=== PATIENT | female | born 1960 | race Caucasian/White ===

== ENCOUNTER 2016-10-01 13:23 | Inpatient (IN) | payer OTHER ==
[2016-09-30 08:09] VITALS: BMI 31.0
--- NOTE | 2016-09-30 21:28 | HISTORY & PHYSICAL EXAMINATION ---
DATE OF ADMISSION: 10/01/2016 SUBJECTIVE CHIEF COMPLAINT: Nonhealing surgical wound, right ankle. HISTORY OF PRESENT ILLNESS: This is a patient who had had a neglected Achilles tendon tear who subsequently had it repaired approximately [address] Hauser. Over the previous 2-3 weeks, the patient is being seen for a nonhealing aspect of the wound at the mid portion of the incision along the right Achilles. At her most recent visit, there was Achilles tissue noted to be exposed as well as permanent suture exposed from the tendon repair. She is now being set up for surgical treatment of this nonhealing wound. PAST MEDICAL HISTORY: History of heart murmur and a valve problem, history of DVT and pulmonary embolism, anxiety and depression, and hiatal hernia. FAMILY HISTORY: Noncontributory. SOCIAL HISTORY: The patient denies alcohol and tobacco use. PAST SURGICAL HISTORY: Cholecystectomy, a lymph node biopsy, tonsillectomy, right Achilles tendon repair, tubal ligation and an ablation. ALLERGIES: ALCOHOL BOTH TOPICAL AND INGESTED ALCOHOL, OXYCODONE, IODINE, LATEX, LEVAQUIN, VIOXX, AND KEFLEX. CURRENT MEDICATIONS: Coumadin 5 mg p.o. daily, Lovenox b.i.d., Bactrim-DS p.o. b.i.d., a multivitamin daily and Xanax as needed. OBJECTIVE PHYSICAL EXAMINATION: GENERAL: The patient is alert and oriented x3. She is in no acute distress. She is a well-dressed, well-nourished 55-year-old female. Her affect is appropriate. CARDIOVASCULAR: Heart has a regular rhythm and rate with a systolic ejection murmur. LUNGS: Clear to auscultation bilateral. NEUROVASCULAR: Dorsalis pedis, posterior tib pulses are +1/4. Capillary refill is approximately 2 seconds. LYMPHATIC: No evidence of any swollen lymph nodes. MUSCULOSKELETAL: The patient is nonweightbearing on the right lower extremity. After removal of her splint, the patient is noted to have a nonhealing aspect of the surgical wound at the medial aspect of the Achilles. There is exposed Achilles tendon as well to exposed sutures, which have been removed. There is mild to moderate serosanguineous drainage, there is no purulence noted, does not appear to be any fluctuance noted at the site. NEUROLOGIC: Sensation normal intact distally right lower extremity. ASSESSMENT AND DIAGNOSIS: 1. Right ankle nonhealing surgical wound at the medial aspect of the Achilles, status post Achilles tendon repair. PLAN: Above assessment was discussed with the patient. At this time, it was recommended the patient undergo an I\T\D of the right ankle nonhealing wound as well as possible removal of the sutures from the Achilles tendon. All potential risks, benefits, complications, alternatives and rehab have been discussed with the patient. At this time, she wishes to proceed with the surgery as indicated. She will be scheduled for the surgery on 10/01/2016. NOE
[~2016-10-01] VITALS: Ht 154.9 cm; Wt 75.0 kg
[~2016-10-01 13:23] MED LIST: ALPR-411 PO; LACTATED RINGER'S 1000ML IV SCH; LOVENOX INJ; MULT-506 PO; SCOPOLAMINE 1.5 MG TDSY TD SCH; WARF5TAB7 PO
[2016-10-01 13:43] VITALS: BP 139/90; PULSE 63; TEMP 36.6; O2SAT 97; Ht 154.9 cm; Wt 75.0 kg
[2016-10-01 14:03] LABS: INR 1.5 (0.9-1.1); PARTIAL THROMBOPLASTIN RATIO 1.5; PROTHROMBIN TIME (PATIENT) 16.3 SECONDS (9.0-12.0)
[2016-10-01] MEDS ORDERED: SULF1TAB92 PO (14:16)
[2016-10-01] MEDS: CHECK SCOPOLAMINE PATCH PLACEMENT SCH (16:00)
--- NOTE | 2016-10-01 17:48 | History & Physical Bridge Note ---
H&P Re-Evaluation Bridge Note: I have examined the patient, reviewed the History & Physical and in the interval since the performance of the History & Physical I have noted the following changes of clinical significance: No changes noted
[2016-10-01] MEDS ORDERED: ATROPINE SULFATE 0.1 MG/ML 5ML SYR IV PRN (19:45)
[2016-10-01] MEDS ORDERED: FENTANYL CITRATE INJ 50 MCG/1 ML 2 ML VIAL IV PRN (19:45)
[2016-10-01] MEDS ORDERED: ONDANSETRON INJ 2 MG/ML 2 ML VIAL IV PRN ×2 (19:45→21:45)
[2016-10-01] MEDS ORDERED: EpHEDrine SULFATE INJ 50 MG/ML AMP IV PRN (19:45)
[2016-10-01] MEDS ORDERED: MIDAZOLAM HCL 1 MG/ML 2ML VIAL ONE (19:46)
[2016-10-01] MEDS ORDERED: FENTANYL CITRATE INJ 50 MCG/1 ML 2 ML VIAL ONE ×2 (19:46→20:24)
[2016-10-01] MEDS ORDERED: ONDANSETRON INJ 2 MG/ML 2 ML VIAL ONE (20:11)
[2016-10-01] MEDS ORDERED: DEXAMETHASONE SOD INJ 4 MG/ML VIAL ONE (20:11)
[2016-10-01] MEDS ORDERED: PROPOFOL IV EMULSION 10 MG/ML 20 ML VIAL IV ONE (20:11)
[2016-10-01] MEDS ORDERED: CLINDAMYCIN 600 MG/54 ML D5W IV ONE (20:16)
[2016-10-01] MEDS ORDERED: BACITRACIN 50000 UNIT VIAL IR ONE (21:09)
[2016-10-01] MEDS ORDERED: BUPIVACAINE 0.5 % 5 MG/1 ML MPF 30ML VIAL INJ ONE (21:09)
[2016-10-01] MEDS ORDERED: NURSING VERBAL MED ORDER ONE (21:27)
[2016-10-01 21:32] VITALS: PULSE 73; O2SAT 98
--- NOTE | 2016-10-01 21:34 | [facility] Post Operative Brief Note ---
Immediate Operative Summary Operative Date Oct 01, 2016. Pre-Operative Diagnosis Right ankle nonhealing surgical wound at the medial aspect of the Achilles, status post Achilles tendon repair, Retained suture Post-Operative Diagnosis Right ankle nonhealing surgical wound at the medial aspect of the Achilles, status post Achilles tendon repair, Retained suture, Infected Achilles repair Procedure(s) Performed Right Irrigation and Debridement Medial Lower Leg Incision, Debridement Achilles Tendon, Debridement Fascia, Removal Deep Sutures Surgeon Dr. Hauser Chemical Handler Surgeon(s) None Estimated Blood Loss 15cc Findings See Dict Specimens None-cultures obtained in office Drains HV x 1, 1/2" Gauze drains x 2 Anesthesia GLMA w/ local Complication(s) None Disposition Recovery Room / PACU
[2016-10-01] MEDS ORDERED: MoRPHine SULFATE 4 MG/ML 1 ML CARP\\VIAL IV PRN (21:45)
[2016-10-01] MEDS ORDERED: ALPRAZOLAM 0.5 MG TAB PO SCH (21:45)
[2016-10-01] MEDS ORDERED: ALUMINUM/MAGNESIUM/SIMETH (MAALOX MAX) 30 ML UDC PO PRN (21:45)
[2016-10-01] MEDS ORDERED: MAGNESIUM HYDROXIDE SUSP 30 ML UDC PO PRN (21:45)
[2016-10-01] MEDS ORDERED: ALBUT/IPRATROP 3MG/0.5MG NEB 3 ML VIAL INH ONE (21:45)
--- NOTE | 2016-10-01 21:55 | DIAGNOSTIC IMAGING REPORT ---
CHEST ONE VIEW PORTABLE CLINICAL HISTORY: Productive cough, coarse breath sounds. COMPARISON STUDY: No previous studies for comparison. FINDINGS: Surgical clips project over the mediastinum. There are also cholecystectomy clips. Lung volumes are at the lower limits of normal. Linear right midlung opacity likely reflects atelectasis or the minor fissure. No consolidation is identified. Cardiac size is at the upper limits of normal. The patient is mildly rotated. There is no pneumothorax or pleural effusion IMPRESSION: No acute cardiopulmonary findings. Electronically signed by: Watson Lewis M.D. 10/01/2016 9:54 PM Dictated Date/Time: 10/01/2016 9:52 PM
[2016-10-01 22:45] VITALS: BP 139/78; PULSE 66; TEMP 36.8; O2SAT 96
[2016-10-01] MEDS ORDERED: ALBUT/IPRATROP 3MG/0.5MG NEB 3 ML VIAL INH PRN (23:15)
[2016-10-01 23:18] VITALS: BP 127/80; PULSE 75; TEMP 36.7; O2SAT 93
--- NOTE | 2016-10-01 23:26 | OPERATIVE REPORT ---
DATE OF OPERATION: 10/01/2016 PREOPERATIVE DIAGNOSES: 1. Right medial lower leg nonhealing surgical wound. 2. Infected Achilles tendon repair. 3. Retained sutures. POSTOPERATIVE DIAGNOSES: Same. PROCEDURES: 1. Right medial lower leg irrigation and debridement. 2. Debridement of Achilles tendon. 3. Debridement of fascia. 4. Removal of deep sutures. SURGEON: Dr. Hauser. HYDROPULPER OPERATOR: None. ANESTHESIA: General LMA with local. SPECIMENS: None. Previously obtained through office. DRAINS: Hemovac x1, 1/2 inch gauze drains x2. COMPLICATIONS: None. BLOOD LOSS: 15 mL. PERTINENT HISTORY: This is a 55-year-old female who had a neglected right Achilles tendon rupture which had undergone subsequent repair. She initially had been uncomplicated recovery; however, the patient did have several falls while trying to maintain nonweightbearing while at home. Some of these were witnessed, some of them unwitnessed. However, the patient did recount discussion of these episodes as well as her family. She then eventually developed redness and swelling over her Achilles tendon incision with eventual dehiscence and failure to heal and noticed at postop wound check that there is visible Achilles tendon with dehiscence of the wound. The patient was then scheduled for debridement and closure. Cultures were obtained in the office. The patient was scheduled for surgery as indicated. All potential risks, benefits, complications, alternatives, rehab, potential for incomplete relief of symptoms, need for further surgery, DVT, PE, , persistent pain, swelling, scarring, weakness, neurovascular injury, wound complications, weakness of the lower extremity and possible eventual limited function with plantar flexion was discussed with the patient. The patient decided to proceed with the procedure as indicated. PROCEDURE IN DETAIL: The patient was taken to the operative suite, placed supine on the operating room table. After review of consent and identification of proper operative site, the patient was anesthetized, LMA was placed. Tourniquet was applied high on the right thigh over cast padding. Right lower extremity was then sterilely prepped and draped in usual fashion. The limb was then elevated. There was no exsanguination performed due to the wound dehiscence. Tourniquet inflated to 350 mmHg. Next, a 15 blade scalpel was used to enlarge the incision both proximally and distally. There was noted to be exposed Achilles tendon with no foul odor and transudate present. This was debrided with a rongeur. The tendon was noted to have poor consistency and resiliency and was then debrided. Noted to be clotted blood adjacent to the Achilles repair. Approximately 60-70% of the repair had been compromised as this was debrided, noted to be suture intact with knots still tied. This had pulled through a significant portion of the tendon and all sutures were then removed proximally and distally. Next, after debridement was completed with rongeur, curette was then used to curet the tissue around the remaining Achilles tendon. There was noted to be a palpable gap in the intact tendon. Next, pulsatile lavage 6 liters with bacitracin was used to irrigate the area. The fascia was also debrided with a rongeur as well as peritenon, which was compromised as well. There was no particular abscess fluid pockets present. Next, the tissue was loosely approximated with 3-0 nylon sutures using combination of simple sutures and horizontal mattress sutures. Next, a 10 Ivorian Hemovac drain and 1/2 inch gauze drains x2 were applied into the wound as packing. The skin flaps were carefully loosely approximated without any undue tension. Next, approximately 30 mL of 0.5% Marcaine plain was injected around the wound for postoperative pain control. Next, a sterile lightly compressive dressing was applied, overwrapped with ABD, Webril, and Felipe wrap. The foot was left in gravity equinus and overwrapped with an Felipe wrap. Tourniquet was released. The patient was awakened and taken to recovery in stable condition. I attest to the content of the Intraoperative Record and any orders documented therein. Any exceptio ns are noted below.
--- NOTE | 2016-10-01 23:42 | Anesthesiology Progress Note ---
Anesthesia Post Op Note Date & Time Oct 01, 2016 at 23:32 Vital Signs Pain Intensity: 0 Vital Signs Past 12 Hours Date Time Temp Pulse Resp B/P Pulse Ox O2 Delivery O2 Flow Rate FiO2 10/01/16 23:18 36.7 75 18 127/80 93 2.0 10/01/16 22:45 36.8 66 20 139/78 96 Nasal Cannula 2.0 10/01/16 22:01 36.4 69 22 139/60 94 Nasal Cannula 2 10/01/16 21:54 72 23 133/76 99 10/01/16 21:54 68 23 10/01/16 21:49 82 32 143/53 96 10/01/16 21:49 83 32 10/01/16 21:44 79 28 10/01/16 21:44 79 28 96 10/01/16 21:43 153/73 10/01/16 21:39 74 26 96 10/01/16 21:39 75 26 10/01/16 21:38 147/73 10/01/16 21:36 80 32 96 10/01/16 21:36 81 32 10/01/16 21:35 77 26 144/84 97 Mask 10 10/01/16 21:33 144/84 10/01/16 21:32 73 21 98 Mask 10.0 10/01/16 21:31 66 22 10/01/16 21:31 66 22 97 10/01/16 21:28 150/86 10/01/16 21:26 71 24 10/01/16 21:26 73 24 98 10/01/16 21:25 62 20 145/78 98 Mask 10 10/01/16 21:24 145/78 10/01/16 21:21 76 26 97 10/01/16 21:21 78 26 10/01/16 21:19 160/72 10/01/16 21:16 70 22 98 10/01/16 21:16 37.1 77 20 141/92 94 Mask 10 10/01/16 21:16 70 22 10/01/16 13:43 36.6 63 20 139/90 97 Room Air Notes Mental Status: alert / awake / arousable, participated in evaluation Pt Amnestic to Procedure: Yes Nausea / Vomiting: adequately controlled Pain: adequately controlled Airway Patency, RR, SpO2: stable & adequate, see Notes BP & HR: stable & adequate Hydration State: stable & adequate Anesthetic Complications: no major complications apparent Patient was a scheduled case from earlier today but was delayed 2/2 several other OR emergencies. Patient had right ankle I and D from a procedure she had done about a month ago at an outside surgical center. Patient stated she had a hiatal hernia but denied any recent reflux symptoms. She had been NPO since and procedure was deemed to last 30 minutes or less so LMA was determined to be an appropriate airway device for her given that the surgery required general anesthesia. LMA was inserted easily and patient had PSV for the majority of the case. Near the end of the procedure, she was spontaneously breathing with assistance. After emergence from anesthesia, LMA was pulled and mask connected to the circuit was applied after she was gently suctioned (only returned saliva) . Patient cough a few times as she was transferred to the stretcher. HOB was elevated and I noted her SpO2 was 95-96% with 10L FM oxygen. She had present but faint rhonchi b/l and was awake and denied pain and was breathing regularly and deeply. She was taken to the PACU where I decided to give her a duoneb and also had a CXR performed as I wanted to rule out aspiration (despite not seeing any vomiting I was still concerned that she could have silently aspirated at some point). I called on-call radiology and radiologist stated he did not see any lung pathology or signs suggestive of aspiration. Patient continued with mid 90's SpO2 as she was weaned to NC and she was encouraged to use ISB. I spoke with the Dr. Gordillo of orthopedics who stated he was planning on admitting the patient, which I agreed with. I then contacted the on-call [facility] hospitalist who was going to be covering the patient and stated my concerns and also stated that I would ensure patient was maintained on NC oxygen on the floor along with continuous pulse oximetry. Hospitalist stated he would see patient on the floor and ensure the level of care did not need to be escalated. Patient was transferred to the floor without issue and will be closely followed. Mayo Forbes MD Staff Anesthesiologist
[2016-10-01 23:45] VITALS: BP 122/74; PULSE 82; TEMP 36.4; O2SAT 94
--- NOTE | 2016-10-01 23:46 | History and Physical ---
History & Physical Date & Time of Service: Oct 01, 2016 at 23:39 Chief Complaint: Right Ankle Other Complications Of Procedures Primary Care Physician: Jatinder Duarte D.O. History of Present Illness Source: patient This is a 55 year old female with PMH of DVT/multiple PEs, recent history of right ankle surgery here for wound I & D; patient had surgical repair of an Achilles tendon rupture on the right about a month prior to arrival; has had difficulty with wound repair, it was decided she would come in for I & D, which she had done. Post-operatively, patient has been coughing and slightly hypoxic requiring O2 via nasal cannula. She tells me she is not short of breath, denies chest pain; +cough, +sputum. Social History Smoking Status: Never Smoker Allergies Coded Allergies: Cephalexin (Verified Allergy, Severe, RASH THROAT SWELLING,ECZEMA, 10/01/16) Latex (Verified Allergy, Severe, RASH WITH CONTACT,SOME SOB, 10/01/16) Rofecoxib (Verified Allergy, Mild, NAUSEA VOMITING, 10/01/16) Wood Preservatives (Verified Allergy, Mild, RASH WITH CONTACT WITH WOOD, ) Alcohol (Verified Allergy, Unknown, INGESTED, NAUSEA/VOMITING, RUBBING ALCOHOL TOPICAL RASH, 10/01/16) Iodinated Diagnostic Agents (Verified Allergy, Unknown, RASH WITH IVP DYES -TOPICAL IODINE OK PER PT, 10/01/16) Nickel (Verified Allergy, Unknown, RASH WITH METALS, 10/01/16) Levofloxacin (Verified Adverse Reaction, Mild, NAUSEA AND VOMITING, 10/01/16 ) Oxycodone (Verified Adverse Reaction, Mild, NAUSEA VOMITING, 10/01/16) Home Medications Scheduled Alprazolam (Xanax), 0.25 MG PO PRN Multivitamin (Multivitamin), 1 TAB PO HS Trimethoprim/Sulfamethoxazole (Bactrim 400MG/80MG), 1 TAB PO Q12H Warfarin Sod (Jantoven), 5 MG PO QPM [Lovenox], 1 DOSE INJ UD Review of Systems Constitutional: No chills, No fever Respiratory: + cough, + sputum, No dyspnea at rest, No dyspnea on exertion, No hemoptysis, No shortness of breath, No wheezing Cardiovascular: No chest pain, No edema, No orthopnea, No palpitations Abdomen: No diarrhea, No nausea, No pain, No vomiting Musculoskeletal: + joint pain (right ankle, controlled with medications) Genitourinary - Female: No dysuria, No urinary frequency Neurologic: No memory loss, No paralysis Psychiatric: No depression symptoms Hematologic / Lymphatic: No abnormal bleeding/bruising Integumentary: No rash Allergic / Immunologic: No environmental allergies, No seasonal allergies Physical Exam Vital Signs Date Time Temp Pulse Resp B/P Pulse Ox O2 Delivery O2 Flow Rate FiO2 10/01/16 23:18 36.7 75 18 127/80 93 2.0 10/01/16 22:45 36.8 66 20 139/78 96 Nasal Cannula 2.0 10/01/16 22:01 36.4 69 22 139/60 94 Nasal Cannula 2 10/01/16 21:54 72 23 133/76 99 10/01/16 21:54 68 23 10/01/16 21:49 82 32 143/53 96 10/01/16 21:49 83 32 10/01/16 21:44 79 28 10/01/16 21:44 79 28 96 10/01/16 21:43 153/73 10/01/16 21:39 74 26 96 10/01/16 21:39 75 26 10/01/16 21:38 147/73 10/01/16 21:36 80 32 96 10/01/16 21:36 81 32 10/01/16 21:35 77 26 144/84 97 Mask 10 10/01/16 21:33 144/84 10/01/16 21:32 73 21 98 Mask 10.0 10/01/16 21:31 66 22 10/01/16 21:31 66 22 97 10/01/16 21:28 150/86 10/01/16 21:26 71 24 10/01/16 21:26 73 24 98 10/01/16 21:25 62 20 145/78 98 Mask 10 10/01/16 21:24 145/78 10/01/16 21:21 76 26 97 10/01/16 21:21 78 26 10/01/16 21:19 160/72 10/01/16 21:16 70 22 98 10/01/16 21:16 37.1 77 20 141/92 94 Mask 10 10/01/16 21:16 70 22 10/01/16 13:43 36.6 63 20 139/90 97 Room Air General Appearance: no apparent distress Head: normocephalic, atraumatic Eyes: normal inspection ENT: hearing grossly normal Respiratory/Chest: lungs clear, normal breath sounds, no respiratory distress, no accessory muscle use Cardiovascular: regular rate, rhythm, no edema, no murmur Abdomen/GI: normal bowel sounds, non tender, soft Extremities/Musculoskelatal: no pedal edema, + pertinent finding (right ankle is heavy dressed/wrapped) Neurologic/Psych: no motor/sensory deficits, alert, normal mood/affect Diagnostics Laboratory Results Results Past 24 Hours Test 10/01/16 13:47 10/01/16 21:19 Range/Units Prothrombin Time 16.3 9.0-12.0 SECONDS Prothromb Time International Ratio 1.5 0.9-1.1 Activated Partial Thromboplast Time 39.1 21.0-31.0 SECONDS Partial Thromboplastin Ratio 1.5 Bedside Glucose 116 70-90 mg/dl Diagnostic Radiology CHEST ONE VIEW PORTABLE CLINICAL HISTORY: Productive cough, coarse breath sounds. COMPARISON STUDY: No previous studies for comparison. FINDINGS: Surgical clips project over the mediastinum. There are also cholecystectomy clips. Lung volumes are at the lower limits of normal. Linear right midlung opacity likely reflects atelectasis or the minor fissure. No consolidation is identified. Cardiac size is at the upper limits of normal. The patient is mildly rotated. There is no pneumothorax or pleural effusion IMPRESSION: No acute cardiopulmonary findings. Impression Assessment and Plan This is a 55 year old female with PMH of DVT/multiple PEs, recent history of right ankle surgery here for wound I & D; Post-Operative Hypoxia -->possible aspiration? -->CXR post-operatively does not show any acute abnormalities -->improved with neb treatment and O2 -->will continue O2 and continuous pulse oximetry for now; saturating > 90% -->nebs as needed -->repeat CXR in AM -->CBC, PRP, Mg in AM Hx. of DVT/Multiple PEs -->has already gone through hypercoag w/up, no findings -->takes Coumadin -->Coumadin to lovenox bridge for surgery -->Lovenox restarted as per ortho -->restart Coumadin when okay with ortho Post-Operative State -->pain management as per ortho DVT ppx -->lovenox FULL CODE VTE Prophylaxis VTE Risk Assessment Done? Y/N: Yes Risk Level: Moderate
[2016-10-02] VITALS (11 sets, daily range): BP systolic 93–139; BP diastolic 47–81; PULSE 50–82; TEMP 36.4–36.8; O2SAT 91–97
[2016-10-02] MEDS: POTASSIUM CHLORIDE INJ 10 MEQ in SODIUM CHLORIDE 0.9% 1000ML 1,000 ML IV SCH ×3 (00:43→21:05)
[2016-10-02 07:03] LABS: MEAN CELL VOLUME 85.7 fL (80-100); MEAN CORPUSCULAR HEMOGLOBIN 29.5 pg (25-34); MEAN CORPUSCULAR HGB CONC 34.4 g/dl (32-36); MEAN PLATELET VOLUME 9.2 fL (7.4-10.4); PLATELET COUNT 230 K/uL (130-400); RED BLOOD COUNT 4.55 M/uL (4.2-5.4); WHITE BLOOD COUNT 14.09 K/uL (4.8-10.8)
[2016-10-02 07:28] LABS: CALCIUM 8.9 mg/dl (8.5-10.1); CREATININE 0.94 mg/dl (0.60-1.20); MAGNESIUM 2.3 mg/dl (1.8-2.4); POTASSIUM 4.3 mmol/L (3.5-5.1)
[2016-10-02] MEDS ORDERED: VANCOMYCIN INJ 1,150 MG in SODIUM CHLORIDE 0.9% 250ML 250 ML IV ONE (08:00)
[2016-10-02] MEDS: CHECK SCOPOLAMINE PATCH PLACEMENT SCH ×3 (08:21→16:10)
[2016-10-02] MEDS: DOCUSATE SODIUM 100 MG CAP PO SCH ×2 (08:29→21:04)
[2016-10-02 08:50] LABS: INR 1.2 (0.9-1.1); PARTIAL THROMBOPLASTIN RATIO 1.2; PROTHROMBIN TIME (PATIENT) 13.3 SECONDS (9.0-12.0)
[2016-10-02] MEDS ORDERED: SULFAMETHOXAZOLE/TRIMETHOPRIM 400/80MG TAB PO SCH (09:00)
[2016-10-02] MEDS ORDERED: MULTIVITAMIN TAB PO SCH (09:00)
--- NOTE | 2016-10-02 10:08 | Orthopedic Progress Note ---
Orthopedic Progress Note Date of Service Oct 02, 2016. Subjective Post OP Day: 1 (Right Irrigation and Debridement Medial Lower Leg Incision) Reports: feeling well, pain controlled w PO medications, Denies: SOB, chest pain , complaints, light headedness, nausea / vomiting Objective N/V intact, capillary refill less than 2 sec., incision C/D/I, A&O x3, toes mobile hemovac pulled, approx 6"packing removed from both prox and distal areas. minimal swelling Date Time Temp Pulse Resp B/P Pulse Ox O2 Delivery O2 Flow Rate FiO2 10/02/16 07:05 36.5 72 16 120/76 96 2.0 10/02/16 03:56 36.5 79 16 139/81 94 Room Air 10/02/16 01:52 36.4 67 16 109/69 94 2.0 10/02/16 00:47 36.5 60 16 102/64 95 2.0 10/01/16 23:45 36.4 82 18 122/74 94 2.0 10/01/16 23:18 36.7 75 18 127/80 93 2.0 10/01/16 22:45 96 Nasal Cannula 3.0 10/01/16 22:45 36.8 66 20 139/78 96 Nasal Cannula 2.0 10/01/16 22:01 36.4 69 22 139/60 94 Nasal Cannula 2 10/01/16 21:54 72 23 133/76 99 10/01/16 21:54 68 23 10/01/16 21:49 82 32 143/53 96 10/01/16 21:49 83 32 10/01/16 21:44 79 28 10/01/16 21:44 79 28 96 10/01/16 21:43 153/73 10/01/16 21:39 74 26 96 10/01/16 21:39 75 26 10/01/16 21:38 147/73 10/01/16 21:36 80 32 96 10/01/16 21:36 81 32 10/01/16 21:35 77 26 144/84 97 Mask 10 10/01/16 21:33 144/84 10/01/16 21:32 73 21 98 Mask 10.0 10/01/16 21:31 66 22 10/01/16 21:31 66 22 97 10/01/16 21:28 150/86 10/01/16 21:26 71 24 10/01/16 21:26 73 24 98 10/01/16 21:25 62 20 145/78 98 Mask 10 10/01/16 21:24 145/78 10/01/16 21:21 76 26 97 10/01/16 21:21 78 26 10/01/16 21:19 160/72 10/01/16 21:16 70 22 98 10/01/16 21:16 37.1 77 20 141/92 94 Mask 10 10/01/16 21:16 70 22 10/01/16 13:43 36.6 63 20 139/90 97 Room Air Laboratory Results 24 Hours: Test 10/01/16 13:47 10/02/16 06:05 10/02/16 08:31 Prothromb Time International Ratio 1.5 1.2 Prothrombin Time 16.3 SECONDS 13.3 SECONDS Hematocrit 39.0 % Hemoglobin 13.4 g/dL Assessment & Plan Assessment: POD #1 s/p Right Irrigation and Debridement Medial Lower Leg Incision, Debridement Achilles Tendon, Debridement Fascia, Removal Deep Sutures - approx 6" packing removed, removed hemovac -ID consult -cont w/ IV Abx pending further evaluation -will recheck wound tomorrow for determination if will need repeat I&D
--- NOTE | 2016-10-02 11:04 | DIAGNOSTIC IMAGING REPORT ---
CHEST 2 VIEWS ROUTINE CLINICAL HISTORY: Evaluate for aspiration pneumonia. COMPARISON STUDY: Chest radiograph October 01, 2016. FINDINGS: Mediastinal surgical clips and cholecystectomy clips are noted. There is no pneumothorax or pleural effusion. No consolidation is identified. Cardiac size is at the upper limits of normal. There is no evidence of pulmonary edema. IMPRESSION: No acute cardiopulmonary findings. Electronically signed by: Watson Lewis M.D. 10/02/2016 11:02 AM Dictated Date/Time: 10/02/2016 11:01 AM
[2016-10-02] MEDS: HYDROCODONE/ACETAMOPHEN 5/325MG TAB PO PRN ×2 (11:09→17:55)
[2016-10-02] MEDS: ENOXAPARIN 40 MG/0.4 ML SYR SQ SCH (11:11)
--- NOTE | 2016-10-02 15:52 | Medical Consult ---
Consultation Date of Consultation: Oct 02, 2016. Attending Physician: Mike Hauser D.O. Reason for Consultation: Infected right Achilles tendon repair History of Present Illness 55-year-old female who underwent repair of ruptured Achilles tendon approximately 4 weeks ago. She apparently had poor wound healing with persistent open wound, and failed to respond to oral Bactrim therapy. She was found to have exposed tendon and sutures, and was admitted to the hospital and is now undergone surgical debridement. Was given dose of vancomycin, now back on oral Bactrim. No cultures available for review. Patient currently states pain relatively well controlled, no history of fever, chills, or other systemic complaints. Tolerating antibiotic without apparent difficulty. Has history of severe reaction to cephalexin in the past. Past Medical/Surgical History Medical Problems: (1) History of DVT (deep vein thrombosis) (2) History of pulmonary embolus (PE) (3) Infection of Achilles tendon (4) Nonhealing surgical wound (5) Retained suture PAST MEDICAL HISTORY: History of heart murmur and a valve problem, history of DVT and pulmonary embolism, anxiety and depression, and hiatal hernia. PAST SURGICAL HISTORY: Cholecystectomy, a lymph node biopsy, tonsillectomy, right Achilles tendon repair, tubal ligation and an ablation. Family History noncontributory Social History Smoking Status: Never Smoker Allergies Coded Allergies: Cephalexin (Verified Allergy, Severe, RASH THROAT SWELLING,ECZEMA, 10/01/16) Latex (Verified Allergy, Severe, RASH WITH CONTACT,SOME SOB, 10/01/16) Rofecoxib (Verified Allergy, Mild, NAUSEA VOMITING, 10/01/16) Wood Preservatives (Verified Allergy, Mild, RASH WITH CONTACT WITH WOOD, ) Alcohol (Verified Allergy, Unknown, INGESTED, NAUSEA/VOMITING, RUBBING ALCOHOL TOPICAL RASH, 10/01/16) Iodinated Diagnostic Agents (Verified Allergy, Unknown, RASH WITH IVP DYES -TOPICAL IODINE OK PER PT, 10/01/16) Nickel (Verified Allergy, Unknown, RASH WITH METALS, 10/01/16) Levofloxacin (Verified Adverse Reaction, Mild, NAUSEA AND VOMITING, 10/01/16 ) Oxycodone (Verified Adverse Reaction, Mild, NAUSEA VOMITING, 10/01/16) Current Inpatient Medications Current Inpatient Medications Medications (Trade) Dose Ordered Sig/Blanca Route Start Time Stop Time Status Last Admin Dose Admin Miscellaneous (Remove Transderm-Scop Patch) 1 ea Q72H N/A 10/03/16 06:00 10/03/16 06:01 Miscellaneous Information (Check Scopolamine Patch Placement) 1 ea QS N/A 10/01/16 16:00 10/03/16 05:59 10/02/16 08:21 1 EA Multivitamins 1 tab 1 tab HS PO 10/02/16 21:00 11/01/16 20:59 Potassium Chloride/Sodium Chloride (KCl Inj/Nss 1000ml) 1,005 ml @ 100 mls/hr Q10H3M IV 10/02/16 01:00 11/01/16 00:59 10/02/16 12:49 100 MLS/HR Acetaminophen/ Hydrocodone Bitart ([place] 5/325 Tab) 1-2 TABS FOR PAIN 1 TABLET ... Q6H PRN PO 10/01/16 21:45 10/15/16 21:44 10/02/16 11:09 1 TAB Morphine Sulfate (MoRPHine SULFATE INJ) 3 mg Q3HWA PRN IV 10/01/16 21:45 10/15/16 21:44 Magnesium Hydroxide (Milk Of Magnesia Susp) 30 ml Q6H PRN PO 10/01/16 21:45 10/31/16 21:44 Docusate Sodium (coLACE CAP) 100 mg BID PO 10/02/16 09:00 11/01/16 08:59 10/02/16 08:29 100 MG Al Hydrox/Mg Hydrox/Simethicone (Maalox Max Susp) 15 ml Q4H PRN PO 10/01/16 21:45 10/31/16 21:44 Ondansetron HCl (Zofran Inj) 4 mg Q6H PRN IV 10/01/16 21:45 10/31/16 21:44 Enoxaparin Sodium (Lovenox Inj) 40 mg QAM SQ 10/02/16 10:00 11/01/16 08:59 10/02/16 11:11 40 MG Albuterol/ Ipratropium (Duoneb) 3 ml Q4H PRN INH 10/01/16 23:15 10/31/16 23:14 Trimethoprim/ Sulfamethoxazole (Septra 400/80MG Tab) 1 tab Q12H PO 10/02/16 09:00 10/12/16 08:59 10/02/16 08:29 1 TAB Review of Systems All systems were reviewed and are negative except as per HPI Physical Exam Date Time Temp Pulse Resp B/P Pulse Ox O2 Delivery O2 Flow Rate FiO2 10/02/16 15:25 36.6 68 17 93/47 95 10/02/16 11:53 36.7 68 8 112/62 91 Room Air 10/02/16 11:34 92 10/02/16 08:10 97 Room Air 3.0 10/02/16 07:05 36.5 72 16 120/76 96 2.0 10/02/16 03:56 36.5 79 16 139/81 94 Room Air 10/02/16 01:52 36.4 67 16 109/69 94 2.0 10/02/16 00:47 36.5 60 16 102/64 95 2.0 10/01/16 23:45 36.4 82 18 122/74 94 2.0 10/01/16 23:18 36.7 75 18 127/80 93 2.0 10/01/16 22:45 96 Nasal Cannula 3.0 10/01/16 22:45 36.8 66 20 139/78 96 Nasal Cannula 2.0 10/01/16 22:01 36.4 69 22 139/60 94 Nasal Cannula 2 10/01/16 21:54 72 23 133/76 99 10/01/16 21:54 68 23 10/01/16 21:49 82 32 143/53 96 10/01/16 21:49 83 32 10/01/16 21:44 79 28 10/01/16 21:44 79 28 96 10/01/16 21:43 153/73 10/01/16 21:39 74 26 96 10/01/16 21:39 75 26 10/01/16 21:38 147/73 10/01/16 21:36 80 32 96 10/01/16 21:36 81 32 10/01/16 21:35 77 26 144/84 97 Mask 10 10/01/16 21:33 144/84 10/01/16 21:32 73 21 98 Mask 10.0 10/01/16 21:31 66 22 10/01/16 21:31 66 22 97 10/01/16 21:28 150/86 10/01/16 21:26 71 24 10/01/16 21:26 73 24 98 10/01/16 21:25 62 20 145/78 98 Mask 10 10/01/16 21:24 145/78 10/01/16 21:21 76 26 97 10/01/16 21:21 78 26 10/01/16 21:19 160/72 10/01/16 21:16 70 22 98 10/01/16 21:16 37.1 77 20 141/92 94 Mask 10 10/01/16 21:16 70 22 General Appearance: WD/WN, no apparent distress Head: normocephalic, atraumatic Eyes: normal inspection, EOMI, sclerae normal ENT: normal ENT inspection, hearing grossly normal, pharynx normal Neck: supple, no adenopathy, thyroid normal, trachea midline Respiratory/Chest: chest non-tender, lungs clear, normal breath sounds, no respiratory distress Cardiovascular: regular rate, rhythm, no gallop, no murmur Abdomen/GI: normal bowel sounds, non tender, soft, no organomegaly Back: normal inspection, no CVA tenderness Extremities/Musculoskelatal: no calf tenderness, normal capillary refill Neurologic/Psych: alert, normal mood/affect, oriented x 3 Skin: normal color, warm/dry, no rash, + pertinent finding ( dressing intact right leg) Lymphatic: no adenopathy Laboratory Results Last 24 Hours Test 10/01/16 21:19 10/02/16 06:05 10/02/16 08:31 Bedside Glucose 116 mg/dl White Blood Count 14.09 K/uL Red Blood Count 4.55 M/uL Hemoglobin 13.4 g/dL Hematocrit 39.0 % Mean Corpuscular Volume 85.7 fL Mean Corpuscular Hemoglobin 29.5 pg Mean Corpuscular Hemoglobin Concent 34.4 g/dl RDW Standard Deviation 43.2 fL RDW Coefficient of Variation 13.9 % Platelet Count 230 K/uL Mean Platelet Volume 9.2 fL Sodium Level 138 mmol/L Potassium Level 4.3 mmol/L Chloride Level 105 mmol/L Carbon Dioxide Level 25 mmol/L Anion Gap 8.0 mmol/L Blood Urea Nitrogen 11 mg/dl Creatinine 0.94 mg/dl Est Creatinine Clear Calc Drug Dose 62.6 ml/min Estimated GFR () 79.2 Estimated GFR (Non- 68.3 BUN/Creatinine Ratio 12.0 Random Glucose 166 mg/dl Calcium Level 8.9 mg/dl Magnesium Level 2.3 mg/dl Prothrombin Time 13.3 SECONDS Prothromb Time International Ratio 1.2 Activated Partial Thromboplast Time 30.8 SECONDS Partial Thromboplastin Ratio 1.2 Assessment & Plan surgical site infection following repair of ruptured right Achilles tendon now status post surgical debridement. I would favor treating patient with IV vancomycin pending availability of further culture results. Length of antibiotics will be determined by clinical response. Will discuss further with Orthopedics.
--- NOTE | 2016-10-02 16:34 | Pharmacy Progress Note ---
Pharmacy Antibiotic Consult Date of Service: Oct 02, 2016. Pharmacy Dosing Scope Pharmacy is consulted to initiate vancomycin IV dosing therapy, order appropriate labs and adjust drug dose/frequency. Subjective The patient is a 55 year old female admitted on Oct 01, 2016 at 21:50 with a non- healing wound over her Achilles tendon. She was admitted 4 weeks ago for a repair of this tendon. In the meantime, the surgical site has not healed, and she was seen at the wound center. She was on oral Bactrim as an outpatient. She underwent an I&D. Objective Height (Feet): 5 Height (Inches): 1 Weight (Kilograms): 75.00 Lab Results (24hrs): Laboratory Tests Test 10/02/16 06:05 BUN/Creatinine Ratio 12.0 Blood Urea Nitrogen 11 mg/dl Creatinine 0.94 mg/dl White Blood Count 14.09 K/uL Assessment & Plan Loading dose: vancomycin 1900 (25 mg/kg) mg IV X 1 dose then: vancomycin 1100 mg IV every 14 hours (population pharmacokinetics suggest a half-life of 12.4 hr with an elimination constant of 0.056 hr-1; 15 mg/kg). Goal peak level estimate: between 35 - 40 mcg/mL. Goal trough level estimate: between 15 - 20 mcg/mL (due to high possibility of MRSA) Trough has been ordered for: prior to 0500 dose. Pharmacy will continue to follow and will adjust dose/frequency as necessary. Thank you
[2016-10-02] MEDS ORDERED: VANCOMYCIN CONSULT ACTIVE PRN (16:45)
[2016-10-02] MEDS ORDERED: VANCOMYCIN INJ 1,900 MG in SODIUM CHLORIDE 0.9% 500ML 500 ML IV ONE (16:45)
--- NOTE | 2016-10-02 19:40 | Progress Note ---
Internal Med Progress Note Date of Service: Oct 02, 2016. Provider Documentation: SUBJECTIVE: resting comfortably no sob no cough afebrile no pain OBJECTIVE: Vital Signs-as noted below Exam: General-alert and oriented x 3 ENT-normal hearing Neck-no neck masses Lungs-cta b/l no wheezing or rhonchi Heart-s1 and s2 heard regular rate and rhythm, no murmurs Abdomen-soft bowel sounds present non tender no distension Extremities-no edema no erythema Right ankle in dressing Neuro-alert and awake moves extremities Lab data as noted below. ASSESSMENT & PLAN: This is a 55 year old female with PMH of DVT/multiple PEs, recent history of right ankle surgery here for wound I & D; Post-Operative Hypoxia aspiration? post op? cxr yesterday and today unremarkable saturating fine on room air stable Hx. of DVT/Multiple PEs has already gone through hypercoag w/up, no findings On Coumadin Coumadin to Lovenox bridge for surgery Lovenox and Coumadin as per ortho Post-Operative State Pain management as per ortho DVT ppx On lovenox FULL CODE DISPOSITION as per ortho Vital Signs: Date Time Temp Pulse Resp B/P Pulse Ox O2 Delivery O2 Flow Rate FiO2 10/02/16 15:25 36.6 68 17 93/47 95 10/02/16 11:53 36.7 68 8 112/62 91 Room Air 10/02/16 11:34 92 10/02/16 08:10 97 Room Air 3.0 10/02/16 07:05 36.5 72 16 120/76 96 2.0 10/02/16 03:56 36.5 79 16 139/81 94 Room Air 10/02/16 01:52 36.4 67 16 109/69 94 2.0 10/02/16 00:47 36.5 60 16 102/64 95 2.0 10/01/16 23:45 36.4 82 18 122/74 94 2.0 10/01/16 23:18 36.7 75 18 127/80 93 2.0 10/01/16 22:45 96 Nasal Cannula 3.0 10/01/16 22:45 36.8 66 20 139/78 96 Nasal Cannula 2.0 10/01/16 22:01 36.4 69 22 139/60 94 Nasal Cannula 2 10/01/16 21:54 72 23 133/76 99 10/01/16 21:54 68 23 10/01/16 21:49 82 32 143/53 96 10/01/16 21:49 83 32 10/01/16 21:44 79 28 10/01/16 21:44 79 28 96 10/01/16 21:43 153/73 10/01/16 21:39 74 26 96 10/01/16 21:39 75 26 10/01/16 21:38 147/73 10/01/16 21:36 80 32 96 10/01/16 21:36 81 32 10/01/16 21:35 77 26 144/84 97 Mask 10 10/01/16 21:33 144/84 10/01/16 21:32 73 21 98 Mask 10.0 10/01/16 21:31 66 22 10/01/16 21:31 66 22 97 10/01/16 21:28 150/86 10/01/16 21:26 71 24 10/01/16 21:26 73 24 98 10/01/16 21:25 62 20 145/78 98 Mask 10 10/01/16 21:24 145/78 10/01/16 21:21 76 26 97 10/01/16 21:21 78 26 10/01/16 21:19 160/72 10/01/16 21:16 70 22 98 10/01/16 21:16 37.1 77 20 141/92 94 Mask 10 10/01/16 21:16 70 22 Lab Results: Results Past 24 Hours Test 10/01/16 21:19 10/02/16 06:05 10/02/16 08:31 Range/Units Bedside Glucose 116 70-90 mg/dl White Blood Count 14.09 4.8-10.8 K/uL Red Blood Count 4.55 4.2-5.4 M/uL Hemoglobin 13.4 12.0-16.0 g/dL Hematocrit 39.0 37-47 % Mean Corpuscular Volume 85.7 80-100 fL Mean Corpuscular Hemoglobin 29.5 25-34 pg Mean Corpuscular Hemoglobin Concent 34.4 32-36 g/dl RDW Standard Deviation 43.2 36.4-46.3 fL RDW Coefficient of Variation 13.9 11.5-14.5 % Platelet Count 230 130-400 K/uL Mean Platelet Volume 9.2 7.4-10.4 fL Sodium Level 138 136-145 mmol/L Potassium Level 4.3 3.5-5.1 mmol/L Chloride Level 105 98-107 mmol/L Carbon Dioxide Level 25 21-32 mmol/L Anion Gap 8.0 3-11 mmol/L Blood Urea Nitrogen 11 7-18 mg/dl Creatinine 0.94 0.60-1.20 mg/dl Est Creatinine Clear Calc Drug Dose 62.6 ml/min Estimated GFR () 79.2 Estimated GFR (Non- 68.3 BUN/Creatinine Ratio 12.0 10-20 Random Glucose 166 70-99 mg/dl Calcium Level 8.9 8.5-10.1 mg/dl Magnesium Level 2.3 1.8-2.4 mg/dl Prothrombin Time 13.3 9.0-12.0 SECONDS Prothromb Time International Ratio 1.2 0.9-1.1 Activated Partial Thromboplast Time 30.8 21.0-31.0 SECONDS Partial Thromboplastin Ratio 1.2
[2016-10-02] MEDS: MULTIVITAMIN TAB PO SCH (21:04)
[2016-10-03] MEDS: HYDROCODONE/ACETAMOPHEN 5/325MG TAB PO PRN ×4 (00:11→18:48)
[2016-10-03] MEDS: POTASSIUM CHLORIDE INJ 10 MEQ in SODIUM CHLORIDE 0.9% 1000ML 1,000 ML IV SCH ×4 (00:12→23:57)
[2016-10-03] MEDS: CHECK SCOPOLAMINE PATCH PLACEMENT SCH (00:13)
[2016-10-03] MEDS ORDERED: PNEUMOCOCCAL ADMINISTRATION CHARGE ONE (04:15)
[2016-10-03] MEDS ORDERED: PNEUMOCOCCAL POLYSACCHARIDES 25 MCG/0.5 ML VIAL/SYR IM. ONE (04:15)
[2016-10-03] MEDS ORDERED: INFLUENZA VIRUS QUAD VACCINE 0.5 ML SYR IM. ONE (04:15)
[2016-10-03] MEDS ORDERED: INFLUENZA ADMINISTRATION CHARGE ONE (04:15)
[2016-10-03] MEDS ORDERED: VANCOMYCIN INJ 1,100 MG in SODIUM CHLORIDE 0.9% 250ML 250 ML IV SCH (05:00)
[2016-10-03] MEDS: VANCOMYCIN INJ 1,100 MG in SODIUM CHLORIDE 0.9% 250ML 250 ML IV SCH ×2 (05:41→20:18)
[2016-10-03] MEDS ORDERED: NURSING DECISION MEDICATION ORDER SCH (06:00)
[2016-10-03] MEDS ORDERED: COUGH DROP (SUGAR FREE) LOZ 24 LOZ/1 BOX PO PRN (06:30)
[2016-10-03 06:49] LABS: HEMATOCRIT 35.2 % (37-47); MEAN CELL VOLUME 88.7 fL (80-100); MEAN CORPUSCULAR HEMOGLOBIN 28.7 pg (25-34); MEAN CORPUSCULAR HGB CONC 32.4 g/dl (32-36); MEAN PLATELET VOLUME 9.2 fL (7.4-10.4); PLATELET COUNT 215 K/uL (130-400); RED BLOOD COUNT 3.97 M/uL (4.2-5.4); WHITE BLOOD COUNT 7.81 K/uL (4.8-10.8)
[2016-10-03 07:27] VITALS: BP 113/63; PULSE 51; TEMP 36.6; O2SAT 97
--- NOTE | 2016-10-03 07:29 | Orthopedic Progress Note ---
Orthopedic Progress Note Date of Service Oct 03, 2016. Subjective Post OP Day: 2 Reports: feeling well, pain controlled w PO medications, Denies: SOB, chest pain , complaints, light headedness, nausea / vomiting Objective calves soft nontender, N/V intact, capillary refill less than 2 sec., A&O x3, toes mobile Incision loosely closed. I did remove remaining packing from the distal most area, removed approx 8" from the proximal area. there was still some packing remaining. erythema has decreased since yesterday. Date Time Temp Pulse Resp B/P Pulse Ox O2 Delivery O2 Flow Rate FiO2 10/03/16 00:13 Nasal Cannula 2.0 10/02/16 23:17 36.8 50 20 108/70 94 Room Air 10/02/16 22:13 Nasal Cannula 2.0 10/02/16 20:00 36.8 56 18 129/73 96 Room Air 10/02/16 15:25 36.6 68 17 93/47 95 10/02/16 11:53 36.7 68 8 112/62 91 Room Air 10/02/16 11:34 92 10/02/16 08:10 97 Room Air 3.0 Laboratory Results 24 Hours: Test 10/02/16 08:31 10/03/16 06:15 Prothromb Time International Ratio 1.2 Prothrombin Time 13.3 SECONDS Hematocrit 35.2 % Hemoglobin 11.4 g/dL Assessment & Plan Assessment: POD #2 s/p Right Irrigation and Debridement Medial Lower Leg Incision, Debridement Achilles Tendon, Debridement Fascia, Removal Deep Sutures - Hemovac was removed yesterday, i removed the remaining packing from distal area, 8" from the proximal most, there was still some packing remaining in this area. -will remove additional packing tomorrow am, cont to observe response to IV Abx -ID consult -cont w/ IV Abx pending further evaluation -clinically responding, feel she does not need a repeat I&D at this point. -cont to ice/elevate for swelling
[2016-10-03] MEDS ORDERED: SULFAMETHOXAZOLE/TRIMETHOPRIM 400/80MG TAB PO SCH (09:00)
[2016-10-03] MEDS: ENOXAPARIN 40 MG/0.4 ML SYR SQ SCH (09:38)
[2016-10-03] MEDS: DOCUSATE SODIUM 100 MG CAP PO SCH ×2 (09:38→20:52)
[2016-10-03 14:56] VITALS: BP 105/57; PULSE 54; TEMP 36.6; O2SAT 94
--- NOTE | 2016-10-03 18:47 | Progress Note ---
Internal Med Progress Note Date of Service: Oct 03, 2016. Provider Documentation: SUBJECTIVE: resting comfortably denies sob has some cough afebrile no complaints OBJECTIVE: Vital Signs-as noted below Exam: General-alert and oriented x 3 ENT-normal hearing Neck-no neck masses Lungs-cta b/l no wheezing or rhonchi Heart-s1 and s2 heard regular rate and rhythm, no murmurs Abdomen-soft bowel sounds present non tender no distension Extremities-no edema no erythema Right ankle in dressing Neuro-alert and awake moves extremities Lab data as noted below. ASSESSMENT & PLAN: This is a 55 year old female with PMH of DVT/multiple PEs, recent history of right ankle surgery here for wound I & D; Post-Operative Hypoxia aspiration? post op? cxr yesterday and today unremarkable saturating fine on room air stable.no issues Hx. of DVT/Multiple PEs has already gone through hypercoag w/up, no findings On Coumadin Coumadin to Lovenox bridge for surgery Lovenox and Coumadin as per ortho Post-Operative State Pain management as per ortho DVT ppx On lovenox FULL CODE DISPOSITION as per ortho Vital Signs: Date Time Temp Pulse Resp B/P Pulse Ox O2 Delivery O2 Flow Rate FiO2 10/03/16 16:00 Room Air 10/03/16 14:56 36.6 54 16 105/57 94 Room Air 10/03/16 07:30 Room Air 10/03/16 07:27 36.6 51 16 113/63 97 Room Air 10/03/16 00:13 Nasal Cannula 2.0 10/02/16 23:17 36.8 50 20 108/70 94 Room Air 10/02/16 22:13 Nasal Cannula 2.0 10/02/16 20:00 36.8 56 18 129/73 96 Room Air Lab Results: Results Past 24 Hours Test 10/03/16 06:15 Range/Units White Blood Count 7.81 4.8-10.8 K/uL Red Blood Count 3.97 4.2-5.4 M/uL Hemoglobin 11.4 12.0-16.0 g/dL Hematocrit 35.2 37-47 % Mean Corpuscular Volume 88.7 80-100 fL Mean Corpuscular Hemoglobin 28.7 25-34 pg Mean Corpuscular Hemoglobin Concent 32.4 32-36 g/dl RDW Standard Deviation 46.6 36.4-46.3 fL RDW Coefficient of Variation 14.3 11.5-14.5 % Platelet Count 215 130-400 K/uL Mean Platelet Volume 9.2 7.4-10.4 fL
--- NOTE | 2016-10-03 19:21 | Infectious Disease Progress Nt ---
Progress Note Date of Service Oct 03, 2016. Subjective Pt evaluation today including: conversation w/ patient, conversation w/ family , physical exam, chart review, lab review, review of studies, conversation w/ animal nutrition consultant, review of inpatient medication list Offers no new complaints today. Surgery deferred for now. Tolerating antibiotic without apparent difficulty. No fever. Pain controlled. All Other Systems: Reviewed and Negative Medications Current Inpatient Medications Medications (Trade) Dose Ordered Sig/Blanca Route Start Time Stop Time Status Last Admin Dose Admin Multivitamins 1 tab 1 tab HS PO 10/02/16 21:00 11/01/16 20:59 10/02/16 21:04 1 TAB Potassium Chloride/Sodium Chloride (KCl Inj/Nss 1000ml) 1,005 ml @ 100 mls/hr Q10H3M IV 10/02/16 01:00 11/01/16 00:59 10/03/16 17:09 100 MLS/HR Acetaminophen/ Hydrocodone Bitart ([place] 5/325 Tab) 1-2 TABS FOR PAIN 1 TABLET ... Q6H PRN PO 10/01/16 21:45 10/15/16 21:44 10/03/16 18:48 1 TAB Morphine Sulfate (MoRPHine SULFATE INJ) 3 mg Q3HWA PRN IV 10/01/16 21:45 10/15/16 21:44 Magnesium Hydroxide (Milk Of Magnesia Susp) 30 ml Q6H PRN PO 10/01/16 21:45 10/31/16 21:44 Docusate Sodium (coLACE CAP) 100 mg BID PO 10/02/16 09:00 11/01/16 08:59 10/03/16 09:38 100 MG Al Hydrox/Mg Hydrox/Simethicone (Maalox Max Susp) 15 ml Q4H PRN PO 10/01/16 21:45 10/31/16 21:44 Ondansetron HCl (Zofran Inj) 4 mg Q6H PRN IV 10/01/16 21:45 10/31/16 21:44 Enoxaparin Sodium (Lovenox Inj) 40 mg QAM SQ 10/02/16 10:00 11/01/16 08:59 10/03/16 09:38 40 MG Albuterol/ Ipratropium (Duoneb) 3 ml Q4H PRN INH 10/01/16 23:15 10/31/16 23:14 Vancomycin HCl 1 ea 1 ea UD PRN N/A 10/02/16 16:45 11/01/16 16:44 Vancomycin HCl/ Sodium Chloride (Vancomycin Inj/ Nss 250ml) 272 ml @ 125 mls/hr Q14H IV 10/03/16 06:00 10/12/16 23:59 10/03/16 05:41 125 MLS/HR Menthol (Nice Rishabh) 1 rishabh PRN PRN PO 10/03/16 06:30 11/02/16 06:29 10/03/16 07:37 1 RISHABH Objective Vital Signs Date Time Temp Pulse Resp B/P Pulse Ox O2 Delivery O2 Flow Rate FiO2 10/03/16 16:00 Room Air 10/03/16 14:56 36.6 54 16 105/57 94 Room Air 10/03/16 07:30 Room Air 10/03/16 07:27 36.6 51 16 113/63 97 Room Air 10/03/16 00:13 Nasal Cannula 2.0 10/02/16 23:17 36.8 50 20 108/70 94 Room Air 10/02/16 22:13 Nasal Cannula 2.0 10/02/16 20:00 36.8 56 18 129/73 96 Room Air Physical Exam General Appearance: WD/WN, no apparent distress Eyes: normal inspection, EOMI, sclerae normal ENT: normal ENT inspection, hearing grossly normal, pharynx normal Neck: supple, no adenopathy, thyroid normal, trachea midline Respiratory/Chest: chest non-tender, lungs clear, normal breath sounds, no respiratory distress Cardiovascular: regular rate, rhythm, no gallop, no murmur Abdomen: normal bowel sounds, non tender, soft, no organomegaly Extremities: no calf tenderness, normal capillary refill Neurologic/Psychiatric: alert, oriented x 3 Skin: normal color, warm/dry, no rash Lymphatic: no adenopathy (surgical dressing intact) Laboratory Results Last 24 Hours Test 10/03/16 06:15 White Blood Count 7.81 K/uL Red Blood Count 3.97 M/uL Hemoglobin 11.4 g/dL Hematocrit 35.2 % Mean Corpuscular Volume 88.7 fL Mean Corpuscular Hemoglobin 28.7 pg Mean Corpuscular Hemoglobin Concent 32.4 g/dl RDW Standard Deviation 46.6 fL RDW Coefficient of Variation 14.3 % Platelet Count 215 K/uL Mean Platelet Volume 9.2 fL Assessment and Plan surgical site infection following repair of ruptured right Achilles tendon now status post surgical debridement. I would favor treating patient with IV vancomycin pending availability of further culture results. Length of antibiotics will be determined by clinical response. Will discuss further with Orthopedics.
[2016-10-03] MEDS: MULTIVITAMIN TAB PO SCH (20:52)
[2016-10-03 23:01] VITALS: BP 149/79; PULSE 95; TEMP 36.4; O2SAT 93
[2016-10-04] MEDS: HYDROCODONE/ACETAMOPHEN 5/325MG TAB PO PRN ×3 (00:40→17:23)
[2016-10-04] MEDS ORDERED: VANCOMYCIN TROUGH SCH ×2 (04:30→09:30)
[2016-10-04 06:36] LABS: HEMATOCRIT 35.6 % (37-47); MEAN CORPUSCULAR HEMOGLOBIN 28.8 pg (25-34); MEAN CORPUSCULAR HGB CONC 32.3 g/dl (32-36); MEAN PLATELET VOLUME 9.4 fL (7.4-10.4); PLATELET COUNT 217 K/uL (130-400); WHITE BLOOD COUNT 5.86 K/uL (4.8-10.8)
[2016-10-04 07:03] LABS: CREATININE 0.84 mg/dl (0.60-1.20)
[2016-10-04 07:25] VITALS: BP 145/78; PULSE 59; TEMP 36.4; O2SAT 94
--- NOTE | 2016-10-04 08:06 | Anesthesiology Progress Note ---
Anesthesia Post Op Note Date & Time Oct 04, 2016 at 08:05 Vital Signs Vital Signs Past 12 Hours Date Time Temp Pulse Resp B/P Pulse Ox O2 Delivery O2 Flow Rate FiO2 10/04/16 07:25 36.4 59 17 145/78 94 10/04/16 00:00 Room Air 10/03/16 23:01 36.4 95 16 149/79 93 Room Air Notes Mental Status: alert / awake / arousable, participated in evaluation Pt Amnestic to Procedure: Yes Nausea / Vomiting: adequately controlled Pain: adequately controlled Airway Patency, RR, SpO2: stable & adequate BP & HR: stable & adequate Hydration State: stable & adequate Anesthetic Complications: no major complications apparent
[2016-10-04] MEDS: DOCUSATE SODIUM 100 MG CAP PO SCH (09:27)
[2016-10-04] MEDS: ENOXAPARIN 40 MG/0.4 ML SYR SQ SCH (09:28)
[2016-10-04] MEDS: VANCOMYCIN INJ 1,100 MG in SODIUM CHLORIDE 0.9% 250ML 250 ML IV SCH (09:37)
--- NOTE | 2016-10-04 13:01 | Pharmacy Progress Note ---
Pharmacy Antibiotic Prog Note Date of Service: Oct 04, 2016. Subjective: The patient is currently receiving vancomycin 1100mg IV q14h. The patient is currently on day #3 of vancomycin IV therapy. Objective: Height (Feet): 5 Height (Inches): 1 Weight (Kilograms): 75.000 Levels: Item Value Date Time Vancomycin Level Trough 12.9 mcg/ml 10/04/16 0929 Lab Results (24hrs): Laboratory Tests Test 10/04/16 05:40 Creatinine 0.84 mg/dl White Blood Count 5.86 K/uL Assessment & Plan: ASSESSMENT: * Patient is a 55 year-old female admitted with a surgical site infection in the Achilles tendon. * Patient was on Bactrim as an outpatient for this. * It is noted that patient has a slightly elevated BMI of 31.3kg/m2. * Pharmacy was consulted to dose the vancomycin IV therapy. * Goal trough of ~15mcg/ml. * Calculated half-life to be ~12hrs and Vd to be 0.61L/kg. * ID was consulted on the patient. PLAN: VANCOMYCIN: * Patient is on vancomycin 1100mg IV q14h (~15mg/kg). * Trough level before the 3rd maintenance dose came back subtherapeutic at 12.9mcg/ml. * Will shorten dosing interval to 1100mg IV q12h. * Will then get a trough level before the 3rd maintenance dose on 10/05 @2130. * Once the level comes back, will adjust the dosing regimen accordingly. Pharmacy will continue to follow and will adjust dose/frequency as necessary. Thank you
[2016-10-04] MEDS: POTASSIUM CHLORIDE INJ 10 MEQ in SODIUM CHLORIDE 0.9% 1000ML 1,000 ML IV SCH (13:25)
[2016-10-04 15:04] VITALS: BP 143/78; PULSE 55; TEMP 36.8; O2SAT 93
[2016-10-04] MEDS ORDERED: HYDR-5688 PO (15:59)
[2016-10-04] MEDS ORDERED: CLC/300 PO (15:59)
--- NOTE | 2016-10-04 15:59 | Orthopedic Progress Note ---
Orthopedic Progress Note Date of Service Oct 04, 2016. Subjective Post OP Day: 3 Reports: feeling well, pain controlled w PO medications, Denies: SOB, calf pain , chest pain, complaints, nausea / vomiting Objective calves soft nontender, N/V intact, capillary refill less than 2 sec., incision C /D/I, A&O x3, toes mobile The rest of the packing removed from the proximal aspect near the incision. About 2 inches removed. No erythema. No drainage noted. Date Time Temp Pulse Resp B/P Pulse Ox O2 Delivery O2 Flow Rate FiO2 10/04/16 15:04 36.8 55 16 143/78 93 Room Air 10/04/16 08:15 Room Air 10/04/16 07:25 36.4 59 17 145/78 94 10/04/16 00:00 Room Air 10/03/16 23:01 36.4 95 16 149/79 93 Room Air 10/03/16 16:00 Room Air Laboratory Results 24 Hours: Test 10/04/16 05:40 Hematocrit 35.6 % Hemoglobin 11.5 g/dL Assessment & Plan Assessment: POD #3 s/p Right Irrigation and Debridement Medial Lower Leg Incision, Debridement Achilles Tendon, Debridement Fascia, Removal Deep Sutures - Discussed case with ID. They are recommending Clindamycin 300 mg PO TID x 2 -3 wks with eval. on the patient's improvement to consider any longer therapy. -ID consult -cont w/ IV Abx pending further evaluation -clinically responding, feel she does not need a repeat I&D at this point. -cont to ice/elevate for swelling Discharge Planning Discharge Planning: home DVT Prophylaxis: Coumadin, Lovenox
--- NOTE | 2016-10-04 16:23 | Discharge Instructions ---
Discharge Instructions Admission Reason for Admission: Right Ankle Other Complications Of Procedures Discharge Discharge Diagnosis / Problem: Right ankle nonhealing surgical wound at the medial aspect of the Discharge Goals Goal(s): Decrease discomfort, Improve function Activity Recommendations Activity Limitations: per Instructions/Follow-up section Weightbearing Status: Right non-weightbearing . Instructions / Follow-Up Instructions / Follow-Up You will need to wear your walking boot when you are out of bed. You may remove it while at rest or for bathing. Daily dressing changes as you have been doing at home with Aquacel (silver ion dressing), 4x4 gauze, web roll (cotton roll) and missael wrap. No weight on the right foot. Use crutches/walker for ambulation. Keep the foot elevated on at least one pillow while at rest to help with swelling. You may use an ice pack regularly. You will resume your Coumadin once daily at home. You will also continue to take your Lovenox injection once daily or as your Primary Care Provider prescribes for you. Please call to make an appointment to have your INR checked this Tuesday (10/06/16). Please follow your Primary Care Providers instructions on the dosage of your Coumadin and Lovenox. Follow up with Lonnie Vincent PA-C this (10/07/16) for a wound check. [phone] Ko in 7-10 days to discuss your antibiotics. [phone] Current Hospital Diet Patient's current hospital diet: Regular Diet Discharge Diet Recommended Diet: Regular Diet Procedures Procedures Performed: Right Irrigation and Debridement Medial Lower Leg Incision, Debridement Achilles Tendon, Debridement Fascia, Removal Deep Sutures Pending Studies Studies pending at discharge: no Medical Emergencies . Who to Call and When: Medical Emergencies: If at any time you feel your situation is an emergency, please call 911 immediately. . Non-Emergent Contact Non-Emergency issues call your: Surgeon Call Non-Emergent contact if: temperature is above 101.5, your pain is worsening, wound has increased drainage, wound has increased redness . "Provider Documentation" section prepared by Derek Schneider. VTE Core Measure Inpt VTE Proph given/why not?: Enoxaparin (Lovenox)SQ
[2016-10-04 16:49] VITALS: BP 143/78; PULSE 55; TEMP 36.8; O2SAT 93
[2016-10-04] MEDS ORDERED: WARFARIN SOD 5 MG TAB PO ONE (17:00)
--- NOTE | 2016-10-04 19:42 | Progress Note ---
Internal Med Progress Note Date of Service: Oct 04, 2016. Provider Documentation: SUBJECTIVE: resting comfortably has some cough denies sob afebrile eating ok OBJECTIVE: Vital Signs-as noted below Exam: General-alert and oriented x 3 ENT-normal hearing Neck-no neck masses Lungs-cta b/l no wheezing or rhonchi Heart-s1 and s2 heard regular rate and rhythm, no murmurs Abdomen-soft bowel sounds present non tender no distension Extremities-no edema no erythema Right ankle in dressing Neuro-alert and awake moves extremities Lab data as noted below. ASSESSMENT & PLAN: This is a 55 year old female with PMH of DVT/multiple PEs, recent history of right ankle surgery here for wound I & D; Post-Operative Hypoxia aspiration? post op? cxr yesterday and today unremarkable saturating fine on room air no complaints Hx. of DVT/Multiple PEs has already gone through hypercoag w/up, no findings On Coumadin Coumadin to Lovenox bridge for surgery Lovenox and Coumadin as per ortho Post-Operative State Pain management as per ortho DVT ppx On lovenox FULL CODE DISPOSITION as per ortho Vital Signs: Date Time Temp Pulse Resp B/P Pulse Ox O2 Delivery O2 Flow Rate FiO2 10/04/16 16:49 36.8 55 16 93 Room Air 10/04/16 15:04 36.8 55 16 143/78 93 Room Air 10/04/16 08:15 Room Air 10/04/16 07:25 36.4 59 17 145/78 94 10/04/16 00:00 Room Air 10/03/16 23:01 36.4 95 16 149/79 93 Room Air Lab Results: Results Past 24 Hours Test 10/04/16 05:40 10/04/16 09:29 Range/Units White Blood Count 5.86 4.8-10.8 K/uL Red Blood Count 4.00 4.2-5.4 M/uL Hemoglobin 11.5 12.0-16.0 g/dL Hematocrit 35.6 37-47 % Mean Corpuscular Volume 89.0 80-100 fL Mean Corpuscular Hemoglobin 28.8 25-34 pg Mean Corpuscular Hemoglobin Concent 32.3 32-36 g/dl RDW Standard Deviation 46.4 36.4-46.3 fL RDW Coefficient of Variation 14.2 11.5-14.5 % Platelet Count 217 130-400 K/uL Mean Platelet Volume 9.4 7.4-10.4 fL Creatinine 0.84 0.60-1.20 mg/dl Est Creatinine Clear Calc Drug Dose 70.1 ml/min Estimated GFR () 90.7 Estimated GFR (Non- 78.2 Vancomycin Level Trough 12.9 SEE COMMENT mcg/ml
[2016-10-04] MEDS ORDERED: VANCOMYCIN INJ 1,100 MG in SODIUM CHLORIDE 0.9% 250ML 250 ML IV SCH (22:00)
[2016-10-05] MEDS ORDERED: VANCOMYCIN TROUGH ONE (21:30)
--- NOTE | 2016-10-13 09:11 | EDITING REQUIRED CODING QUERY ---
CODING QUERY To promote full compliance with coding requirements relating to patient care, provider participation is requested in all cases of box inspector uncertainty. Please assist us with the question(s) below: Coding Question(s): Progress Notes 10/01/16 through 10/04/16 document Post-Operative Hypoxia and possible aspiration. Please clarify below, in your clinical opinion. ( ) Post-Operative Hypoxia was Not a postoperative complication ( ) there was also possible aspiration pneumonia ( ) there was no aspiration pneumonia ( x ) Post-Operative Hypoxia was a postoperative Complication ( ) there was also possible aspiration pneumonia ( ) there was no aspiration pneumonia Physician's Response(s): Thank you Asmita Lewis Principal Diagnosis: "_that condition established after study, to be chiefly responsible for occasioning the admission of the patient to the hospital for care." Co-Existing Principal Diagnosis: "_when two or more diagnoses equally meet the criteria for principal diagnosis as determined by the circumstances of admission, diagnostic work up, and/or therapy provided, and the Alphabetic Index, Tabular List, or another coding guideline does not provide sequencing direction, any one of the diagnoses may be sequenced first." "When the physician has documented what appears to be a current diagnosis in the body of the record, but has not included the diagnosis in the final diagnostic statement, the physician should be asked whether the diagnosis should be added." (Source [facility]oding [facility] 2 QTR90. p3-4)
== END 2016-10-04 17:35 | disposition home or self-care (01) | DRG 857 ==
LOC: ENRESERVDT → ENRESERVTM → C.ACU 13:23 → C.MSN 21:50
PROVIDERS: ADMIT Orthopaedic Surgery Sports Medicine; ATTEND Orthopaedic Surgery Sports Medicine
PROC: 0JDN0ZZ Extraction of Right Lower Leg Subcutaneous Tissue and Fascia, Open Approach (ICD-10-PCS; principal; 2016-10-01 15:15)
DX: T81.4XXA Infection following a procedure, initial encounter (principal); T81.31XA Disruption of external operation (surgical) wound, not elsewhere classified, initial encounter; J95.89 Other postprocedural complications and disorders of respiratory system, not elsewhere classified; R09.02 Hypoxemia; M65.171 Other infective (teno)synovitis, right ankle and foot; Z91.81 History of falling; Z51.81 Encounter for therapeutic drug level monitoring; Z79.01 Long term (current) use of anticoagulants; Z86.711 Personal history of pulmonary embolism; Z86.718 Personal history of other venous thrombosis and embolism; Y83.8 Other surgical procedures as the cause of abnormal reaction of the patient, or of later complication, without mention of misadventure at the time of the procedure